=== PATIENT | female | born 1975 | race Caucasian/White ===

== ENCOUNTER 2017-01-16 01:19 | Emergency (ER) | payer MEDICAID ==
[2017-01-16 01:19] VITALS: BMI 24.2
[2017-01-16 01:45] VITALS: RESP 18; O2SAT 98
--- NOTE | 2017-01-16 02:00 | ED PDOC ---
Arrival/HPI - General Chief Complaint: Medical Clearance Time Seen by Provider: 01/16/17 01:52 Historian: Patient - History of Present Illness Narrative History of Present Illness (Text): 01/16/17 01:53 Melissa Dasilva is a 41 year old female, with a history of asthma, presents to the emergency department complaining of sore throat discomfort associated with runny nose, congestion and generalized body aches since yesterday. Patient notes of headache for past 2 weeks which she describes as a pressure sensation radiating from posterior head to forehead. Not the worse headache of her life. Patient had a history of migraine headaches while she was , and CT imaging was not done at that time due to . Patient has been taking Tylenol for the headache over the past 2 weeks for minimal weeks, last Tylenol taken at 8 pm yesterday. Tangentially, patient also reports of burning sensation while urinating for past week. Denies fever, chills, dizziness, chest pain, shortness of breath, nausea, vomiting, diarrhea, abdominal pain, back pain , flank pain, or any other complaints at this time. PMD: Dr. Rankin Time/Duration: Other (2 weeks ) Symptom Onset: Gradual Severity Level: Mild Activities at Onset: Light Past Medical History - Provider Review Nursing Documentation Reviewed: Yes - Infectious Disease Hx of Infectious Diseases: None - Tetanus Immunization Tetanus Immunization: Unknown - Cardiac Hx Cardiac Disorders: No - Pulmonary Hx Asthma: Yes - Neurological Hx Neurological Disorder: No - HEENT Hx HEENT Disorder: No - Renal Hx Renal Disorder: No - Endocrine/Metabolic Hx Endocrine Disorders: No - Hematological/Oncological Hx Blood Disorders: No - Integumentary Hx Dermatological Disorder: No - Musculoskeletal/Rheumatological Hx Musculoskeletal Disorders: No - Gastrointestinal Hx Gastrointestinal Disorders: No - Genitourinary/Gynecological Hx Genitourinary Disorders: No - Psychiatric Hx Psychophysiologic Disorder: No Hx Depression: No Hx Emotional Abuse: No Hx Physical Abuse: No Hx Substance Use: No - Surgical History Hx Cholecystectomy: Yes Hx Tubal Ligation: Yes - Anesthesia Hx Anesthesia: No - Suicidal Assessment Feels Threatened In Home Enviroment: No Family/Social History - Physician Review Nursing Documentation Reviewed: Yes Family/Social History: No Known Family HX Smoking Status: Unknown If Ever Smoked Hx Alcohol Use: Yes Hx Substance Use: No Allergies/Home Meds Allergies/Adverse Reactions: Allergies No Known Allergies Allergy (Verified 06/02/17 01:45) Home Medications: Home Meds Medication Instructions Recorded Confirmed Famotidine [Pepcid] 40 mg PO DAILY 01/16/17 01/16/17 Review of Systems - Physician Review All systems were reviewed & negative as marked: Yes - Review of Systems Constitutional: Fatigue. absent: Fevers ENT: Sore Throat, Rhinorrhea Respiratory: Cough. absent: SOB, Sputum Cardiovascular: absent: Chest Pain, Palpitations Gastrointestinal: absent: Abdominal Pain, Diarrhea, Nausea, Vomiting Genitourinary Female: Dysuria. absent: Frequency, Hematuria Musculoskeletal: absent: Back Pain, Neck Pain Neurological: Headache. absent: Dizziness Physical Exam Vital Signs Reviewed: Yes Vital Signs Temp Pulse Resp BP Pulse Ox 01/16/17 03:41 99.2 F 88 18 123/72 98 01/16/17 01:44 99.7 F H 108 H 18 157/85 H 98 Temperature: Afebrile Blood Pressure: Normal Pulse: Tachycardic Respiratory Rate: Normal Appearance: Positive for: Well-Appearing, Non-Toxic, Comfortable Pain Distress: None Mental Status: Positive for: Alert and Oriented X 3 - Systems Exam Head: Present: Atraumatic, Normocephalic Pupils: Present: PERRL Conjunctiva: Present: Normal Ears: Present: Normal, NORMAL TM, Normal Canal. No: Erythema, TM Bulging, Fluid Mouth: Present: Moist Mucous Membranes Pharnyx: No: ERYTHEMA, EXUDATE, TONSILS ENLARGED, Peritonsilar Swelling, Uvular Deviation, Muffled/Hoarse Voice, Strider Nose (External): Present: Other (clear rhinorrhea) Neck: Present: Normal Range of Motion. No: Meningeal Signs, MIDLINE TENDERNESS , Paraspinal Tenderness Respiratory/Chest: Present: Clear to Auscultation, Good Air Exchange. No: Respiratory Distress, Accessory Muscle Use Cardiovascular: Present: Regular Rate and Rhythm, Normal S1, S2. No: Murmurs Abdomen: Present: Normal Bowel Sounds. No: Tenderness, Distention, Peritoneal Signs Upper Extremity: Present: Normal Inspection. No: Cyanosis, Edema Lower Extremity: Present: Normal Inspection. No: Edema Neurological: Present: GCS=15, CN II-XII Intact, Speech Normal, Motor Func Grossly Intact Skin: Present: Warm, Dry, Normal Color. No: Rashes Psychiatric: Present: Alert, Oriented x 3, Normal Insight, Normal Concentration Medical Decision Making ED Course and Treatment: 01/16/17 02:03 Impression: A 41 year old female who presents to the emergency department complaining of sore throat discomfort associated with nasal congestion and generalized weakness for past day. Notes of headache for past 2 weeks and dysuria for past week. Differential Diagnosis include but are not limited to: Plan: -- CT head to r/o mass due to recurrent headaches -- Labs -- Chest X-ray -- Toradol -- Zofran -- IV fluids -- POC Urine test -- Urinalysis -- Reassess and disposition Progress Notes: 01/16/17 03:01 CT Head results reviewed, read by : Bee Coker MD FINDINGS: Artifact from earring. No intracranial hemorrhage. No intracranial edema. No evidence of infarct. The sinuses and mastoid air cells are clear. IMPRESSION: No acute findings. 01/16/17 03:03 Patient is not . CT head negative. Patient has normal oropharyngeal exam and due combined with rhinorrhea and non-productive cough, seems consistent with viral process. Cxray negative for infiltrate. UA shows positive leukocytes and due to dysuria, will dc with levaquin. - Lab Interpretations Microbiology Results: Microbiology Results 01/16/17 03:00 Urine,Clean Catch Urine Culture - Final Staphylococcus Aureus Lab Results: 01/16/17 02:10 01/16/17 02:15 Lab Results 01/16/17 02:15: Sodium 135, Potassium 4.1, Chloride 100, Carbon Dioxide 27, Anion Gap 12, BUN 13, Creatinine 0.8, Est GFR ( Amer) > 60, Est GFR (Non- Af Amer) > 60, Random Glucose 102, Calcium 9.1 01/16/17 02:10: WBC 14.2 H, RBC 3.94, Hgb 11.9 L, Hct 35.8 L, MCV 90.9, MCH 30.2 , MCHC 33.2, RDW 14.3, Plt Count 303, MPV 9.4, Gran % 81.2 H, Lymph % (Auto) 12.4 L, [place] % (Auto) 5.1, Eos % (Auto) 1.1 L, Baso % (Auto) 0.2, Gran # 11.56 H , Lymph # 1.8, [place] # 0.7 H, Eos # 0.2, Baso # 0.03 01/16/17 01:40: Urine Color Yellow, Urine Appearance Sl cloudy, Urine pH 7.0, Ur Specific [place] 1.020, Urine Protein Negative, Urine Glucose (UA) Negative, Urine Ketones Negative, Urine Blood Moderate H, Urine Nitrate Negative, Urine Bilirubin Negative, Urine Urobilinogen 0.2, Ur Leukocyte Esterase Trace H, Urine RBC 1 - 3, Urine WBC 2 - 5, Ur Epithelial Cells 3 - 4, Urine Bacteria Many I have reviewed the lab results: Yes - RAD Interpretation Radiology Orders: 01/16/17 01:52 HEAD W/O CONTRAST [CT] Stat 01/16/17 01:54 CHEST PORTABLE [RAD] Stat Translator Deaf: Radiologist - Medication Orders Current Medication Orders: Discontinued Medications Sodium Chloride (Sodium Chloride 0.9%) 1,000 mls @ 999 mls/hr IV .Q1H1M STA Stop: 01/16/17 02:54 Last Admin: 01/16/17 03:31 Dose: 999 mls/hr Ketorolac Tromethamine (Toradol) 30 mg IVP STAT STA Stop: 01/16/17 01:55 Last Admin: 01/16/17 02:18 Dose: 30 mg Ketorolac Tromethamine (Toradol) Confirm Administered Dose 30 mg .ROUTE .STK- MED ONE Stop: 01/16/17 02:07 Last Admin: 01/16/17 02:25 Dose: Not Given Non-Admin Reason: Patient Refused Levofloxacin (Levaquin) 750 mg PO STAT STA Stop: 01/16/17 03:05 Last Admin: 01/16/17 03:10 Dose: 750 mg Ondansetron HCl (Zofran Inj) 4 mg IVP STAT STA Stop: 01/16/17 01:55 Last Admin: 01/16/17 02:18 Dose: 4 mg - Scribe Statement The provider has reviewed the documentation as recorded by the Ravinder Machado Provider Attestation: Provider Scribe Attestation: All medical record entries made by the Scribe were at my direction and personally dictated by me. I have reviewed the chart and agree that the record accurately reflects my personal performance of the history, physical exam, medical decision making, and the department course for this patient. I have also personally directed, reviewed, and agree with the discharge instructions and disposition. Disposition/Present on Arrival - Present on Arrival Any Indicators Present on Arrival: No History of DVT/PE: No History of Uncontrolled Diabetes: No Urinary Catheter: No History of Decub. Ulcer: No History Surgical Site Infection Following: None - Disposition Have Diagnosis and Disposition been Completed?: Yes Diagnosis: Upper respiratory infection, UTI (urinary tract infection) Disposition: HOME/ ROUTINE Disposition Time: 03:05 Patient Plan: Discharge Condition: GOOD Discharge Instructions (ExitCare): Urinary Tract Infection in Women (ED), Upper Respiratory Infection (ED), Viral Syndrome (ED) Print Language: CROATIAN Additional Instructions: Follow up with PMD within 2 days. Return to ED if condition worsens. Take full course of antibiotics. Prescriptions: Levofloxacin [Levaquin] 750 mg PO DAILY #5 tablet Forms: WORK NOTE
[2017-01-16] MEDS: Sodium Chloride 0.9% 1,000 ML IV STA ×2 (02:18→03:31)
[2017-01-16 02:29] LABS: ADD MANUAL DIFF? NO
[2017-01-16 02:44] LABS: BASO # 0.03 K/mm3 (0.0-2.0); BASO % 0.2 % (0.0-3.0); EOS # 0.2 (0.0-0.7); EOS % 1.1 % (1.5-5.0); GRAN # 11.56 (1.4-6.5); GRAN % 81.2 % (50.0-68.0); HEMATOCRIT 35.8 % (36.0-48.0); LYMPH # 1.8 (1.2-3.4); LYMPH % 12.4 % (22.0-35.0); MEAN CELL VOLUME 90.9 fL (80.0-105.0); MEAN CORPUSCULAR HEMOGLOBIN 30.2 pg (25.0-35.0); MEAN CORPUSCULAR HGB CONC 33.2 g/dl (31.0-37.0); MEAN PLATELET VOLUME 9.4 fl (7.0-11.0); MONO # 0.7 (0.1-0.6); MONO % 5.1 % (1.0-6.0); PLATELET COUNT 303 10^3/uL (120.0-450.0); RED CELL DISTRIBUTION WIDTH 14.3 % (11.5-14.5); WHITE BLOOD COUNT 14.2 10^3/ul (4.5-11.0)
[2017-01-16 02:52] LABS: URINE BILIRUBIN NEGATIVE (NEGATIVE); URINE BLOOD MODERATE (NEGATIVE); URINE GLUCOSE (UA) NEGATIVE (NEGATIVE); URINE KETONE NEGATIVE (NEGATIVE); URINE LEUKOCYTE ESTERASE TRACE Leu/uL (NEGATIVE); URINE PROTEIN NEGATIVE mg/dL (<30 mg/dL); URINE UROBILINOGEN 0.2 E.U./dL (<1 E.U./dL)
[2017-01-16 02:53] LABS: URINE APPEARANCE SL CLOUDY (CLEAR); URINE COLOR YELLOW (YELLOW)
[2017-01-16 02:53] LABS: BLOOD UREA NITROGEN 13 mg/dL (7-21); CALCIUM 9.1 mg/dL (8.4-10.5); CARBON DIOXIDE 27 mmol/L (21-33); CHLORIDE 100 mmol/L (98-107); GFR AFRICAN-AMERICAN > 60; GLUCOSE,RANDOM 102 mg/dL (70-110); POTASSIUM 4.1 mmol/L (3.6-5.0); SODIUM 135 mmol/L (132-148)
--- NOTE | 2017-01-16 03:01 | CT ---
EXAM: CT Head Without Intravenous Contrast CLINICAL HISTORY: 41 years old, female; Pain; Headache TECHNIQUE: Axial computed tomography images of the head/brain without intravenous contrast. This CT exam was performed using one or more of the following dose reduction techniques: automated exposure control, adjustment of the mA and/or kV according to patient size, and/or use of iterative reconstruction technique. EXAM DATE/TIME: 01/16/2017 1:52 AM COMPARISON: No relevant prior studies available. FINDINGS: Artifact from earring. No intracranial hemorrhage. No intracranial edema. No evidence of infarct. The sinuses and mastoid air cells are clear. IMPRESSION: No acute findings.
[2017-01-16 03:03] LABS: URINE BACTERIA MANY (NEG)
[2017-01-16] MEDS ORDERED: levoFLOXacin 750 MG TAB PO STA (03:04)
[2017-01-16 03:42] VITALS: BP 123/72; PULSE 88; TEMP 99.2
--- NOTE | 2017-01-16 08:27 | RAD ---
HISTORY: cough COMPARISON: No prior. FINDINGS: LUNGS: The lungs are clear. PLEURA: No significant pleural effusion identified, no pneumothorax apparent. CARDIOVASCULAR: Normal. OSSEOUS STRUCTURES: No significant abnormalities. VISUALIZED UPPER ABDOMEN: Normal. OTHER FINDINGS: None. IMPRESSION: No active pulmonary disease.
== END 2017-01-16 03:42 | disposition home or self-care (01) ==
LOC: ED 01:19
DX: J06.9 Acute upper respiratory infection, unspecified (principal); N39.0 Urinary tract infection, site not specified; J45.909 Unspecified asthma, uncomplicated
CPT/HCPCS: 70450; 71010; 80048; 81001; 85025; 87086; 87181; 96361; 96374; 96375; 99283; J1885; J2405; J7040

== ENCOUNTER 2017-02-10 14:16 | Emergency (ER) | payer MEDICAID ==
[2017-02-10 14:30] VITALS: RESP 19; TEMP 97.8; O2SAT 98; BMI 32.3
[2017-02-10 14:47] LABS: URINE BILIRUBIN NEGATIVE (NEGATIVE); URINE BLOOD TRACE-LYSED (NEGATIVE); URINE GLUCOSE (UA) NEGATIVE (NEGATIVE); URINE KETONE NEGATIVE (NEGATIVE); URINE LEUKOCYTE ESTERASE TRACE Leu/uL (NEGATIVE); URINE PROTEIN NEGATIVE mg/dL (<30 mg/dL); URINE UROBILINOGEN 0.2 E.U./dL (<1 E.U./dL)
[2017-02-10 14:48] LABS: URINE APPEARANCE CLEAR (CLEAR); URINE COLOR YELLOW (YELLOW)
[2017-02-10 14:51] LABS: URINE BACTERIA FEW (NEG); URINE EPITHELIAL CELLS MANY /hpf (0-5); URINE WBC 0 - 2 /hpf (0-6)
--- NOTE | 2017-02-10 15:40 | ED PDOC ---
Arrival/HPI - General Chief Complaint: Back Pain Time Seen by Provider: 02/10/17 14:34 Historian: Patient - History of Present Illness Narrative History of Present Illness (Text): 02/10/17 15:13 41yo female present with complaint of spasm like lower back pain . States pain started while trying to sit on a toilet seat. she notes history of Sciatica months ago that resolved. States pain is with ambulating and walking straight. Pain is 8/10. did not take any medication for the pain. denies trauma, focal weakness, saddle anesthesia, abdominal pain, urinary/fecal incontinence, any other complaint. Past Medical History - Provider Review Nursing Documentation Reviewed: Yes - Infectious Disease Hx of Infectious Diseases: None - Tetanus Immunization Tetanus Immunization: Unknown - Cardiac Hx Cardiac Disorders: No - Pulmonary Hx Asthma: Yes - Neurological Hx Neurological Disorder: No - HEENT Hx HEENT Disorder: No - Renal Hx Renal Disorder: No - Endocrine/Metabolic Hx Endocrine Disorders: No - Hematological/Oncological Hx Blood Disorders: No - Integumentary Hx Dermatological Disorder: No - Musculoskeletal/Rheumatological Hx Musculoskeletal Disorders: No - Gastrointestinal Hx Gastrointestinal Disorders: No - Genitourinary/Gynecological Hx Genitourinary Disorders: No - Psychiatric Hx Psychophysiologic Disorder: No Hx Depression: No Hx Emotional Abuse: No Hx Physical Abuse: No Hx Substance Use: No - Surgical History Hx Cholecystectomy: Yes Hx Tubal Ligation: Yes - Anesthesia Hx Anesthesia: Yes Hx Anesthesia Reactions: No - Suicidal Assessment Feels Threatened In Home Enviroment: No Family/Social History - Physician Review Nursing Documentation Reviewed: Yes Family/Social History: Unknown Family HX Smoking Status: Unknown If Ever Smoked Hx Alcohol Use: Yes Hx Substance Use: No Allergies/Home Meds Allergies/Adverse Reactions: Allergies apple Allergy (Verified 02/10/17 14:33) ANGIOEDEMA pineapple Allergy (Verified 02/10/17 14:33) ANGIOEDEMA Review of Systems - Physician Review All systems were reviewed & negative as marked: Yes - Review of Systems Constitutional: Normal Eyes: Normal ENT: Normal Respiratory: Normal Cardiovascular: Normal Gastrointestinal: Normal Genitourinary Female: Normal Musculoskeletal: Back Pain Skin: Normal Neurological: Normal Endocrine: Normal Hemo/Lymphatic: Normal Psychiatric: Normal Physical Exam Vital Signs Reviewed: Yes Vital Signs Temp Pulse Resp BP Pulse Ox 02/10/17 14:29 97.8 F 86 19 126/89 98 Temperature: Afebrile Blood Pressure: Normal Pulse: Regular Respiratory Rate: Normal Appearance: Positive for: Well-Appearing, Non-Toxic, Comfortable Pain Distress: None Mental Status: Positive for: Alert and Oriented X 3 - Systems Exam Head: Present: Atraumatic, Normocephalic Pupils: Present: PERRL Extroacular Muscles: Present: EOMI Conjunctiva: Present: Normal Mouth: Present: Moist Mucous Membranes Neck: Present: Normal Range of Motion Respiratory/Chest: Present: Clear to Auscultation, Good Air Exchange. No: Respiratory Distress, Accessory Muscle Use Cardiovascular: Present: Regular Rate and Rhythm, Normal S1, S2. No: Murmurs Abdomen: Present: Normal Bowel Sounds. No: Tenderness, Distention, Peritoneal Signs Back: No: Midline Tenderness, Paraspinal Tenderness, Pain with Leg Raise Upper Extremity: Present: Normal Inspection. No: Cyanosis, Edema Lower Extremity: Present: Normal Inspection. No: Edema Neurological: Present: GCS=15, CN II-XII Intact, Speech Normal Skin: Present: Warm, Dry, Normal Color. No: Rashes Psychiatric: Present: Alert, Oriented x 3, Normal Insight, Normal Concentration Medical Decision Making ED Course and Treatment: 02/10/17 17:25 Pt in ED for stated history. She was neurologically intact. Ambulatory. Pain most likely musculoskeleteal. Her pain improved in ED with medication LS xray - Negative Result was DW the pt. She reports that she was given Cortisone injection 6months ago by orthopedist for sciatica. She was DC home with a rx of Naprosyn and flexeril. - Lab Interpretations Lab Results: Lab Results 02/10/17 14:30: Urine Color Yellow, Urine Appearance Clear, Urine pH 6.0, Ur Specific [place] >= 1.030, Urine Protein Negative, Urine Glucose (UA) Negative, Urine Ketones Negative, Urine Blood Trace-lysed H, Urine Nitrate Negative, Urine Bilirubin Negative, Urine Urobilinogen 0.2, Ur Leukocyte Esterase Trace H , Urine RBC 1 - 3, Urine WBC 0 - 2, Ur Epithelial Cells Many, Urine Bacteria Few - RAD Interpretation Radiology Orders: 02/10/17 14:34 LS SPINE WITH OBL > 18 YRS OLD [RAD] Stat - Medication Orders Current Medication Orders: Discontinued Medications Dexamethasone (Decadron Inj) 10 mg IM STAT STA Stop: 02/10/17 16:27 Last Admin: 02/10/17 16:47 Dose: 10 mg Diazepam (Valium) 5 mg PO ONCE ONE PRN Reason: Protocol Stop: 02/10/17 14:46 Last Admin: 02/10/17 14:53 Dose: 5 mg Ketorolac Tromethamine (Toradol) 60 mg IM STAT STA Stop: 02/10/17 14:46 Last Admin: 02/10/17 14:53 Dose: 60 mg Disposition/Present on Arrival - Present on Arrival Any Indicators Present on Arrival: No History of DVT/PE: No History of Uncontrolled Diabetes: No Urinary Catheter: No History of Decub. Ulcer: No History Surgical Site Infection Following: None - Disposition Have Diagnosis and Disposition been Completed?: Yes Diagnosis: Back strain Disposition: HOME/ ROUTINE Disposition Time: 16:20 Patient Plan: Discharge Patient Problems: Current Active Problems Problem Status Onset Back strain Acute Condition: STABLE Discharge Instructions (ExitCare): Back Pain (ED) Additional Instructions: Follow up with your Doctor/Orthopedist Rest, Apply warm compress to area Return to ED for any new symptoms Prescriptions: Cyclobenzaprine [Cyclobenzaprine HCl] 10 mg PO TID #12 tab Naproxen [Naprosyn] 500 mg PO BID #20 tab Referrals: PCP,NO [Primary Care Provider] - Follow up with primary Ayan Zhong III, MD [Medical Doctor] - Follow up with primary
--- NOTE | 2017-02-10 17:20 | RAD ---
PROCEDURE: Radiographs of the Lumbar Spine. HISTORY: back pain COMPARISON: No prior. FINDINGS: BONES: Normal alignment. No listhesis. No fracture. DISC SPACES: Unremarkable. OTHER FINDINGS: None. IMPRESSION: Unremarkable radiographs of the lumbar spine.
[2017-02-10 17:32] VITALS: BP 129/76; PULSE 92
== END 2017-02-10 17:29 | disposition home or self-care (01) ==
LOC: ED 14:16
DX: S39.012A Strain of muscle, fascia and tendon of lower back, initial encounter (principal); X58.XXXA Exposure to other specified factors, initial encounter
CPT/HCPCS: 72110; 81001; 87086; 96372; 99283; J1100; J1885

== ENCOUNTER 2017-12-19 11:47 | Emergency (ER) | payer MEDICAID ==
[2017-12-19 11:55] VITALS: BMI 31.8
[2017-12-19] MEDS ORDERED: Oxycodone/Acetaminophen 5/325 mg Tab PO STA (12:20)
--- NOTE | 2017-12-19 12:22 | ED PDOC ---
Arrival/HPI - General Chief Complaint: Back Pain Time Seen by Provider: 12/19/17 12:07 Historian: Patient - History of Present Illness Narrative History of Present Illness (Text): 12/19/17 12:19 pt p/w + 1 week onset of lower back pain, lower right paralumbar tenderness with pain radiating down her right buttock and down to mid right lower leg region; pt states similar symptoms in the past, over 2 years; pt states no recent exertions/heavy lifting/prolonged walking/standing; pt states no numbness /tingling, no urinary/bowel changes, no incontinence, no rectal/vaginal numbness /tingling; pt states no fever/chills/sweats, no cp/sob/palpitations, no abd pain , no n/v, no rashes/lesions, no fall/trauma/sick contact, 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 PCP: Dr Rankin LMP: 2 years ago PSHx: removed GB; tubal ligation Symptom Onset: Sudden Symptom Course: Worsening Quality: Tightness, Cramping Severity Level: 10, Severe Activities at Onset: Rest Context: Walking, Exertion, Home Past Medical History - Provider Review Nursing Documentation Reviewed: Yes - Travel History Have you recently traveled outside [place] w/in the past 3 mons?: No - Past History Past History: No Previous - Infectious Disease Hx of Infectious Diseases: None - Tetanus Immunization Tetanus Immunization: Unknown - Reproductive Menopause: No Currently : No - Cardiac Hx Cardiac Disorders: No - Pulmonary Hx Asthma: Yes - Neurological Hx Neurological Disorder: No - HEENT Hx HEENT Disorder: No - Renal Hx Renal Disorder: No - Endocrine/Metabolic Hx Endocrine Disorders: No - Hematological/Oncological Hx Blood Disorders: No - Integumentary Hx Dermatological Disorder: No - Musculoskeletal/Rheumatological Hx Musculoskeletal Disorders: No - Gastrointestinal Hx Gastrointestinal Disorders: No - Genitourinary/Gynecological Hx Genitourinary Disorders: No - Psychiatric Hx Psychophysiologic Disorder: No Hx Depression: No Hx Emotional Abuse: No Hx Physical Abuse: No Hx Substance Use: No - Surgical History Hx Cholecystectomy: Yes Hx Tubal Ligation: Yes - Anesthesia Hx Anesthesia: Yes Hx Anesthesia Reactions: No Hx Malignant Hyperthermia: No - Suicidal Assessment Feels Threatened In Home Enviroment: No Family/Social History - Physician Review Nursing Documentation Reviewed: Yes Family/Social History: No Known Family HX Smoking Status: Unknown If Ever Smoked Hx Alcohol Use: Yes Hx Substance Use: No Allergies/Home Meds Allergies/Adverse Reactions: Allergies apple Allergy (Verified 02/10/17 14:33) ANGIOEDEMA pineapple Allergy (Verified 02/10/17 14:33) ANGIOEDEMA Review of Systems - Review of Systems Constitutional: Normal Eyes: Normal ENT: Normal Respiratory: Normal. absent: SOB Cardiovascular: Normal. absent: Chest Pain Gastrointestinal: Normal. absent: Abdominal Pain Genitourinary Female: Normal Musculoskeletal: Back Pain Skin: Normal Neurological: Normal Endocrine: Normal Hemo/Lymphatic: Normal Psychiatric: Normal Physical Exam Vital Signs Temp Pulse Resp BP Pulse Ox 12/19/17 15:01 76 18 159/86 H 99 12/19/17 11:48 98.3 F 95 H 16 128/71 96 Temperature: Afebrile Blood Pressure: Normal Pulse: Regular Respiratory Rate: Normal Appearance: Positive for: Well-Appearing, Non-Toxic, Uncomfortable, Other (alert /awake, uncomfortable, mild-moderate distress due to pain, cooperative, GCS = 15 , oriented x 3, follows command with) Pain Distress: Moderate Mental Status: Positive for: Alert and Oriented X 3 - Systems Exam Head: Present: Atraumatic, Normocephalic Pupils: Present: PERRL, Other (no nystagmus, no photophobia, sclera anicteric, visual field intact b/l) Extroacular Muscles: Present: EOMI Conjunctiva: Present: Normal Ears: Present: Normal Mouth: Present: Moist Mucous Membranes, Normal Teeth, Other (uvula/tongue are midline, no exudate/lesion, no drooling/stridor) Pharnyx: Present: Normal Nose (External): Present: Atraumatic Nose (Internal): Present: Normal Inspection Neck: Present: Normal Range of Motion, Trachea Midline, Other (intact ROM, no step off, no midline tenderness). No: Meningeal Signs, MIDLINE TENDERNESS, Paraspinal Tenderness Respiratory/Chest: Present: Clear to Auscultation, Good Air Exchange, Other ( CTA b/l, no w/r/r). No: Respiratory Distress, Accessory Muscle Use Cardiovascular: Present: Regular Rate and Rhythm, Normal S1, S2. No: Murmurs Abdomen: Present: Normal Bowel Sounds, Other (well nourished female, no focal tenderness, no brennan's sign, no mcburney's point tenderness, no masses/rebound/ guarding/rigidity). No: Tenderness, Distention Back: Present: Normal Inspection, Paraspinal Tenderness, Pain with Leg Raise ( to right leg at 10-15 degrees, negative SLR to left leg), Other (no midline tenderness, + right lower para-lumbar tenderness, no crepitus, no step off, no skin discloration noted). No: CVA Tenderness, Midline Tenderness Upper Extremity: Present: Normal Inspection, Normal ROM, NORMAL PULSES, Neurovascularly Intact, Capillary Refill < 2s. No: Deformity Lower Extremity: Present: Normal Inspection, NORMAL PULSES, Normal ROM, Neurovascularly Intact, Other (strength 5/5 grossly intact b/l, reflex +2/2 b/l) . No: Deformity Neurological: Present: GCS=15, CN II-XII Intact, Speech Normal Skin: Present: Warm, Normal Color, Other (cap refill < 1sec, no ulcerations, no petechiae, no rashes). No: Dry Psychiatric: Present: Alert, Oriented x 3 Medical Decision Making ED Course and Treatment: 12/19/17 12:19 Impression: low back pain i have consider all the differential diagnosis regarding pt's chief medical complaints/clinical findings, including but are not limited to: low back pain A/P: low back pain - supportive care - observe/reevaluation 12/19/17 15:15 Upon reevaluation, patient with persistent/continued back discomfort and states initial round of pain medications helped ease some of the pain from 10/10 to 8/ 10, however pain has returned to initial severity. Patient is now requesting more assistance with pain. Patient is capable to ambulate on her own currently 12/19/17 16:50 after 2nd round pain medications was given, pt felt much improved pt states her pain is now 1/10 pt remained able to ambulate pt states she is now ready to be discharged and she wants to go home pt is made aware of her medical results pt is encouraged no prolonged standing/walking pt is encouraged no heavy lifting pt will f/u as directed pt will be discharged home Re-evaluation Time: 15:10 Reassessment Condition: Improving,but remains with symptoms - Medication Orders Current Medication Orders: Discontinued Medications Diazepam (Valium) 5 mg PO ONCE ONE PRN Reason: Protocol Stop: 12/19/17 12:21 Last Admin: 12/19/17 13:20 Dose: 5 mg Diazepam (Valium) 2 mg PO ONCE ONE PRN Reason: Protocol Stop: 12/19/17 15:24 Last Admin: 12/19/17 16:01 Dose: 2 mg Hydromorphone HCl (Dilaudid) 1 mg IM STAT STA Stop: 12/19/17 15:24 Last Admin: 12/19/17 16:02 Dose: 1 mg MAR Pain Assessment Document 12/19/17 16:02 SH (Rec: 12/19/17 16:02 [id number]) Pain Reassessment Is this a pain reassessment? No Sleep Is patient sleeping during reassessment? No Presence of Pain Presence of Pain Yes Pain Scale Used Pain Scale Used Numeric Description Intensity of Pain at present 7 IM Administration Charges Document 12/19/17 16:02 (Rec: 12/19/17 16:02 [id number]) Charges for Administration # of IM Administrations 1 Ketorolac Tromethamine (Toradol) 30 mg IM STAT STA Stop: 12/19/17 12:21 Last Admin: 12/19/17 13:20 Dose: 30 mg MAR Pain Assessment Document 12/19/17 13:20 SH (Rec: 12/19/17 13:20 [id number]) Pain Reassessment Is this a pain reassessment? No Sleep Is patient sleeping during reassessment? No Presence of Pain Presence of Pain Yes Pain Scale Used Pain Scale Used Numeric Location Pain Location Body Site Back Description Description Radiating IM Administration Charges Document 12/19/17 13:20 (Rec: 12/19/17 13:20 [id number] Charges for Administration # of IM Administrations 1 Re-Assess: MAR Pain Assessment Document 12/19/17 14:20 SH (Rec: 12/19/17 15:02 [id number]) Pain Reassessment Is this a pain reassessment? Yes Sleep Is patient sleeping during reassessment? No Presence of Pain Presence of Pain Yes Pain Scale Used Pain Scale Used Numeric Description Intensity of Pain at present 7 Oxycodone/Acetaminophen (Percocet 5/325 Mg Tab) 1 tab PO STAT STA Stop: 12/19/17 12:21 Last Admin: 12/19/17 13:21 Dose: 1 tab [facility] Pain Assessment Document 12/19/17 13:21 SH (Rec: 12/19/17 13:21 [id number]) Pain Reassessment Is this a pain reassessment? No Sleep Is patient sleeping during reassessment? No Presence of Pain Presence of Pain Yes Pain Scale Used Pain Scale Used Numeric Location Pain Location Body Site Back Re-Assess: [facility] Pain Assessment Document 12/19/17 14:21 SH (Rec: 12/19/17 15:02 [id number]) Pain Reassessment Is this a pain reassessment? Yes Sleep Is patient sleeping during reassessment? No Presence of Pain Presence of Pain Yes Pain Scale Used Pain Scale Used Numeric Description Intensity of Pain at present 7 Disposition/Present on Arrival - Present on Arrival Any Indicators Present on Arrival: No History of DVT/PE: No History of Uncontrolled Diabetes: No Urinary Catheter: No History of Decub. Ulcer: No History Surgical Site Infection Following: None - Disposition Have Diagnosis and Disposition been Completed?: Yes Diagnosis: Strain of lumbar spine, Back pain Disposition: HOME/ ROUTINE Disposition Time: 16:52 Patient Plan: Discharge Patient Problems: Current Active Problems Problem Status Onset Back pain Acute Strain of lumbar spine Acute Condition: STABLE Discharge Instructions (ExitCare): Low Back Pain in Adults, Lumbar Muscle Strain, Back Exercises Print Language: MALTESE Additional Instructions: Make sure to see your doctor in 1-2 days DRINK PLENTY OF FLUIDS AVOID prolong standing/walking AVOID heavy lifting please lift with your legs in the future and avoid using your back take your medications as prescribed RETURN TO ED IF worse pain, cant breath, persistent vomiting, high fever >101- 102 for hours, altered behavior, slurr speech, facial changes, focal weakness ( arm/leg or both), unable to urinate, urinary/bowel incontinence, heavy/ persistent bleeding, passing out, chest pain, or other medical emergencies Prescriptions: diaZEpam [Valium] 5 mg PO TID PRN #12 tab PRN Reason: Muscle Spasm Ibuprofen [Motrin] 600 mg PO QID PRN #30 tab PRN Reason: Pain, Mild (1-3) oxyCODONE/Acetaminophen [Percocet 5/325 mg Tab] 1 - 2 tab PO QID PRN #15 tab PRN Reason: Pain, Moderate (4-7) Referrals: Martín Hsieh, [Primary Care Provider] - Follow up with primary Ayan Zhong III, MD [Medical Doctor] - Follow up with primary Bekah Kirby MD [Staff Provider] - Follow up with primary [facility] [Outside] - Follow up with primary [facility] [Outside] - Follow up with primary Forms: [employer] (Estonian)
[2017-12-19] MEDS ORDERED: HYDROmorphone 1 mg/ml ISec IM STA (15:23)
[2017-12-19 17:06] VITALS: BP 138/76; PULSE 86; RESP 16; TEMP 98.6; O2SAT 97
== END 2017-12-19 17:05 | disposition home or self-care (01) ==
LOC: ED 11:47
DX: S39.012A Strain of muscle, fascia and tendon of lower back, initial encounter (principal); X58.XXXA Exposure to other specified factors, initial encounter; Y92.9 Unspecified place or not applicable
CPT/HCPCS: 96372; 99283; J1170; J1885